=== PATIENT | female | born 1975 ===

== ENCOUNTER → 2020-10-27 16:38 | Outpatient (REF) | payer OTHER, SELFPAY ==
[2020-10-27 22:06] LABS: Anion Gap 9.3 mmol/L (3-11); BUN 15 mg/dL (7-18); CO2 24.7 mmol/L (21.0-32.0); Calcium 7.9 mg/dL (8.5-10.1); Chloride 93 mmol/L (98-107); Glucose 469 mg/dL (74-106); Potassium 3.8 mmol/L (3.5-5.1); Sodium 127 mmol/L (136-145)
[2020-10-27 23:17] LABS: CREATININE 0.78 mg/dL (0.55-1.02)
== END ==
LOC: NCHCN 16:38
PROVIDERS: Visit Provider Nurse Practitioner Family
DX: E78.1 Pure hyperglyceridemia (principal); E11.9 Type 2 diabetes mellitus without complications
CPT/HCPCS: 80048

== ENCOUNTER 2021-05-23 17:56 | Outpatient (REF) | payer OTHER, SELFPAY ==
[2021-05-23 17:12] LABS: Albumin 3.4 g/dL (3.4-5.0); Alkaline Phosphatase 64 U/L (46-116); Anion Gap 11.5 mmol/L (3-11); Bilirubin, Total 0.6 mg/dL (0.2-1.0); CO2 23.5 mmol/L (21.0-32.0); Calcium 7.6 mg/dL (8.5-10.1); Chloride 97 mmol/L (98-107); Glucose 336 mg/dL (74-106); Potassium 4.1 mmol/L (3.5-5.1); Sodium 132 mmol/L (136-145); Total Protein 6.4 g/dL (6.4-8.2)
[2021-05-23 20:32] LABS: ALT 42 U/L (14-59); AST 29 U/L (15-37)
[2021-05-23 20:33] LABS: BUN 15 mg/dL (7-18); CREATININE < 0.6 mg/dL (0.55-1.02); Cholesterol 480 mg/dL (<200)
[2021-05-23 20:34] LABS: HDL Cholesterol 34 mg/dL (40-60); Triglyceride 3481 mg/dL (<150)
[2021-05-23 20:36] LABS: LDL CHOLESTEROL 96 mg/dL (<100)
[2021-05-24 21:05] LABS: Estimated Average Glucose 243 mg/dL; Hemoglobin A1C 10.1 % (<5.7)
[2021-05-27 11:16] LABS: Misc Referral (MAYO) See Comments
== END 2021-05-23 17:57 | disposition home or self-care (01) ==
LOC: NCHCN 17:56
PROVIDERS: Visit Provider Nurse Practitioner Family
DX: Z00.00 Encounter for general adult medical examination without abnormal findings (principal); E88.01 Alpha-1-antitrypsin deficiency; E11.9 Type 2 diabetes mellitus without complications
CPT/HCPCS: 80053; 80061; 83721; 83036; 84443

== ENCOUNTER 2021-08-22 10:03 | Outpatient (REF) | payer OTHER, SELFPAY ==
[2021-08-22 14:23] LABS: Cholesterol 144 mg/dL (<200); HDL Cholesterol 34 mg/dL (40-60); Triglyceride 442 mg/dL (<150)
[2021-08-22 14:35] LABS: LDL CHOLESTEROL 50 mg/dL (<100)
== END 2021-08-22 10:04 | disposition home or self-care (01) ==
LOC: NCHCN 10:03
PROVIDERS: Visit Provider Nurse Practitioner Family
DX: E78.1 Pure hyperglyceridemia (principal); E78.6 Lipoprotein deficiency
CPT/HCPCS: 80061; 83721